=== PATIENT | male | born 1940 | race Caucasian/White ===

== ENCOUNTER 2025-04-28 13:28 | Inpatient (IN) | payer MEDICARE, OTHER ==
[2025-04-28] MEDS ORDERED: Sodium Chloride 0.9% 10 ML Syringe FLUSH PRN (13:36)
[2025-04-28 14:05] LABS: BASOPHILS ABSOLUTE AUTO 0.02 K/uL (0.02-0.10); BASOPHILS PERCENT AUTO 0.1 % (0.0-0.5); EOSINOPHILS ABSOLUTE AUTO 0.02 K/uL (0.04-0.40); EOSINOPHILS PERCENT AUTO 0.1 % (1.0-5.0); LYMPHOCYTES ABSOLUTE AUTO 1.84 K/uL (1.50-4.00); LYMPHOCYTES PERCENT AUTO 13.7 % (20.0-40.0); MEAN PLATELET VOLUME 11.4 fL (6.0-10.0); MONOCYTES ABSOLUTE AUTO 0.65 K/uL (0.20-0.80); MONOCYTES PERCENT AUTO 4.8 % (3.0-10.0); NEUTROPHILS ABSOLUTE AUTO 10.89 K/uL (2.00-7.50); NEUTROPHILS PERCENT AUTO 81.3 % (45.0-70.0); PLATELET COUNT,PLT 168 K/uL (150-400); RED BLOOD CELL COUNT 5.66 M/uL (4.50-6.50); RED CELL DISTRIBUTION WIDTH 14.2 % (11.0-16.0); WHITE BLOOD CELL COUNT,WBC 13.4 K/uL (4.0-11.0)
[2025-04-28 14:29] LABS: LACTIC ACID 3.0 mmol/L (0.4-2.0)
[2025-04-28 14:41] LABS: A/G RATIO 1.0 (0.8-2.0); ALANINE AMINOTRANSFERASE,ALT 31 U/L (12-78); ASPARTATE AMNIOTRANSFERASE,AST 37 U/L (15-37); BILIRUBIN TOTAL 3.2 mg/dL (0.0-1.0); BLOOD UREA NITROGEN,BUN 22 mg/dL (8-26); CARBON DIOXIDE,CO2 26.3 mmol/L (21.0-32.0); CHLORIDE,CL 102 mmol/L (98-107); CREATININE 1.36 mg/dL (0.70-1.30); EST CRCL DRUG DOSING (CG) 43.59 mL/min; ESTIMATED GFR 51 mL/min (>60); GLUCOSE RANDOM 150 mg/dL (74-100); POTASSIUM,K 5.2 mmol/L (3.5-5.1); PRO B-TYPE NATRIUR PEPT,BNPPRO 4422 pg/mL (0-450); PROTEIN TOTAL,TP 8.6 g/dL (6.4-8.2); SODIUM,NA 139 mmol/L (136-145); TROPONIN I HIGH SENSITIVITY 16.1 pg/ml (<=60.4)
[2025-04-28] MEDS: Prochlorperazine 10 MG/2 ML SDV IVPUSH ONE (15:35)
[2025-04-28] MEDS ORDERED: Ondansetron 4 MG/2 ML SDV IV PRN (18:41)
[2025-04-29 07:32] LABS: APPEARANCE,URINE CLEAR (CLEAR); GLUCOSE,URINE NEGATIVE (NEGATIVE); OCCULT BLOOD,URINE TRACE-INTACT (NEGATIVE)
[2025-04-29 07:40] LABS: EPITHELIAL CELLS,URINE RARE /HPF
[2025-04-29 07:55] LABS: MEAN PLATELET VOLUME 10.7 fL (6.0-10.0); PLATELET COUNT,PLT 142.0 K/uL (150-400); RED BLOOD CELL COUNT 4.92 M/uL (4.50-6.50); RED CELL DISTRIBUTION WIDTH 14.6 % (11.0-16.0); WHITE BLOOD CELL COUNT,WBC 11.1 K/uL (4.0-11.0)
[2025-04-29] MEDS: Fluticasone NASAL Spray 16 GM Bottle NASBOTH SCH ×2 (08:02→15:07)
[2025-04-29 08:14] LABS: BLOOD UREA NITROGEN,BUN 23.0 mg/dL (8-26); CARBON DIOXIDE,CO2 29.6 mmol/L (21.0-32.0); CHLORIDE,CL 108.0 mmol/L (98-107); CREATININE 1.43 mg/dL (0.70-1.30); EST CRCL DRUG DOSING (CG) 41.45 mL/min; ESTIMATED GFR 48.0 mL/min (>60); GLUCOSE RANDOM 99.0 mg/dL (74-100); POTASSIUM,K 4.0 mmol/L (3.5-5.1); SODIUM,NA 144.0 mmol/L (136-145)
[2025-04-29] MEDS: Albuterol/Ipratropium 14.7 GM Inhaler INH PRN (10:02)
[2025-04-29] MEDS ORDERED: Albuterol/Ipratropium 14.7 GM Inhaler INH PRN (12:00)
[2025-04-29] MEDS ORDERED: Propofol 200 MG/20 ML SDV ONE (15:15)
[2025-04-29 15:21] LABS: A/G RATIO 1.0 (0.8-2.0); ALANINE AMINOTRANSFERASE,ALT 23.0 U/L (12-78); ASPARTATE AMNIOTRANSFERASE,AST 23.0 U/L (15-37); BILIRUBIN TOTAL 3.1 mg/dL (0.0-1.0); BLOOD UREA NITROGEN,BUN 24.0 mg/dL (8-26); CARBON DIOXIDE,CO2 29.1 mmol/L (21.0-32.0); CHLORIDE,CL 109.0 mmol/L (98-107); CREATININE 1.43 mg/dL (0.70-1.30); EST CRCL DRUG DOSING (CG) 41.45 mL/min; ESTIMATED GFR 48.0 mL/min (>60); GLUCOSE RANDOM 112.0 mg/dL (74-100); POTASSIUM,K 4.5 mmol/L (3.5-5.1); PROTEIN TOTAL,TP 7.3 g/dL (6.4-8.2); SODIUM,NA 145.0 mmol/L (136-145)
[2025-04-29 15:24] LABS: LACTIC ACID 1.9 mmol/L (0.4-2.0)
[2025-04-30] MEDS: Albuterol/Ipratropium 14.7 GM Inhaler INH SCH (07:12)
[2025-04-30] MEDS: Prochlorperazine 10 MG/2 ML SDV IVPUSH ONE (10:17)
[2025-04-30] MEDS: diazePAM 5 MG/ML MDV IVPUSH ONE (10:20)
[2025-04-30] MEDS: diphenhydrAMINE 50 MG/ML SDV IVPUSH ONE (10:20)
[2025-04-30 13:50] LABS: MEAN PLATELET VOLUME 10.8 fL (6.0-10.0); PLATELET COUNT,PLT 130.0 K/uL (150-400); RED BLOOD CELL COUNT 4.77 M/uL (4.50-6.50); RED CELL DISTRIBUTION WIDTH 14.5 % (11.0-16.0); WHITE BLOOD CELL COUNT,WBC 8.5 K/uL (4.0-11.0)
[2025-04-30 14:06] LABS: BLOOD UREA NITROGEN,BUN 21.0 mg/dL (8-26); CARBON DIOXIDE,CO2 28.0 mmol/L (21.0-32.0); CHLORIDE,CL 107.0 mmol/L (98-107); CREATININE 1.47 mg/dL (0.70-1.30); EST CRCL DRUG DOSING (CG) 40.33 mL/min; ESTIMATED GFR 46.0 mL/min (>60); GLUCOSE RANDOM 137.0 mg/dL (74-100); POTASSIUM,K 4.0 mmol/L (3.5-5.1); SODIUM,NA 143.0 mmol/L (136-145)
[2025-05-01] MEDS: diphenhydrAMINE 50 MG/ML SDV IVPUSH ONE (09:47)
[2025-05-01] MEDS: diazePAM 5 MG/ML MDV IVPUSH ONE (09:47)
[2025-05-01] MEDS: Iodixanol 652 MG/ML 100 ML Bottle IV SCH (15:20)
[2025-05-01] MEDS: Sodium Chloride 0.9% 50 ML SDV FLUSH ONE (15:21)
[2025-05-02 07:10] VITALS: BP 143/91; PULSE 88
== END 2025-05-02 11:38 | disposition swing bed (61) | DRG 392 ==
LOC: LB.ED 13:28 → LB.MS 18:00 → UNDOADMIN 18:00 → LB.MS 18:41
PROVIDERS: ADMIT Surgery; ATTEND Surgery
PROC: 0DJ08ZZ Inspection of Upper Intestinal Tract, Via Natural or Artificial Opening Endoscopic (ICD-10-PCS; principal; 2025-04-28)
DX: R42 Dizziness and giddiness (principal); K20.90 Esophagitis, unspecified without bleeding; I10 Essential (primary) hypertension; I48.20 Chronic atrial fibrillation, unspecified; E87.20 Acidosis, unspecified; H81.10 Benign paroxysmal vertigo, unspecified ear; H26.9 Unspecified cataract; E78.00 Pure hypercholesterolemia, unspecified; J44.9 Chronic obstructive pulmonary disease, unspecified; M19.90 Unspecified osteoarthritis, unspecified site; E66.9 Obesity, unspecified; N18.2 Chronic kidney disease, stage 2 (mild); M54.9 Dorsalgia, unspecified; G89.29 Other chronic pain; F17.200 Nicotine dependence, unspecified, uncomplicated; I12.9 Hypertensive chronic kidney disease with stage 1 through stage 4 chronic kidney disease, or unspecified chronic kidney disease; Z79.01 Long term (current) use of anticoagulants; Z79.899 Other long term (current) drug therapy; Z95.5 Presence of coronary angioplasty implant and graft; I25.2 Old myocardial infarction; Z68.27 Body mass index [BMI] 27.0-27.9, adult; Z79.82 Long term (current) use of aspirin
CPT/HCPCS: 36415; 70450; 70496; 70498; 71045; 74176; 80048; 80053; 81001; 83605; 83690; 83735; 83880; 84484; 85025; 85027; 86140; 87040; 93005; 93010; 95992-GP; 96361; 96374; 97161-GP; 99222; 99232; 99238; 99285-25; A0425; A0427; A9270-GY; J0780; J1200; J2470; J2704; J3360; J7030

== ENCOUNTER 2025-05-02 11:13 | Inpatient (IN) | payer MEDICARE, OTHER ==
[2025-05-02] MEDS ORDERED: Tuberculin, PPD 5 Units/0.1 ML 1 ML MDV IDERM SCH (13:00)
[2025-05-02] MEDS: ALBUTEROL INH SCH (13:13)
[2025-05-02] MEDS: IPRATROPIUM INH SCH (13:13)
[2025-05-02] MEDS: Tuberculin, PPD 5 Units/0.1 ML 1 ML MDV IDERM SCH (13:40)
[2025-05-03] MEDS: Fluticasone NASAL Spray 16 GM Bottle NASBOTH SCH (07:27)
[2025-05-03 07:53] VITALS: BP 157/100; PULSE 62
[2025-05-16] MEDS ORDERED: Tuberculin, PPD 5 Units/0.1 ML 1 ML MDV IDERM SCH ×2 (13:00)
== END 2025-05-03 11:00 | disposition home or self-care (01) | DRG 149 ==
LOC: LB.MS 11:27 → UNDOADMIN 11:27 → LB.MS 11:31 → UNDOADMIN 11:31
PROVIDERS: ADMIT Surgery; ATTEND Surgery
DX: H81.13 Benign paroxysmal vertigo, bilateral (principal); I48.20 Chronic atrial fibrillation, unspecified; E78.00 Pure hypercholesterolemia, unspecified; I10 Essential (primary) hypertension; J44.9 Chronic obstructive pulmonary disease, unspecified; M54.9 Dorsalgia, unspecified; G89.29 Other chronic pain; R26.89 Other abnormalities of gait and mobility; M19.90 Unspecified osteoarthritis, unspecified site; K20.90 Esophagitis, unspecified without bleeding; Z79.82 Long term (current) use of aspirin; I25.2 Old myocardial infarction; Z95.5 Presence of coronary angioplasty implant and graft; Z79.01 Long term (current) use of anticoagulants; Z79.899 Other long term (current) drug therapy
CPT/HCPCS: 86580; 95992-GP; 99305; 99315; A9270-GY